=== PATIENT | female | born 1995 | race Caucasian/White ===

== ENCOUNTER 2017-10-06 21:36 | Observation (INO) | payer MEDICAID, OTHER ==
[2017-10-06 23:04] LABS: Urine Bacteria FEW /hpf (None Seen); Urine Blood Negative /uL (Negative); Urine Mucus FEW (None Seen); Urine WBC 1 /hpf (0 - 5)
[2017-10-06 23:17] LABS: Alcohol, Urine < 3.0 mg/dL (0-5); Amphetamine Screen, Urine NEGATIVE (NEGATIVE); Barbiturate Scree,Urine NEGATIVE (NEGATIVE); Benzodiazephine Screen, Urine NEGATIVE (NEGATIVE); Cannabinoid Screen, Urine NEGATIVE (NEGATIVE); Cocaine Screen, Urine NEGATIVE (NEGATIVE); Opiate Scree,Urine NEGATIVE (NEGATIVE); Phencyclidine Screen, Urine NEGATIVE (NEGATIVE)
[2017-10-08 09:07] LABS: RPR Non Reactive (Non Reactive)
[2017-10-08 12:09] LABS: Rubella Antibodies, IgG <0.90 index (Immune >0.99)
== END 2017-10-06 23:12 | disposition home or self-care (01) | DRG 782 ==
LOC: LDRP 21:36
PROVIDERS: ADMIT Specialist; ATTEND Specialist
DX: O36.8120 Decreased fetal movements, second trimester, not applicable or unspecified (principal); Z3A.26 26 weeks gestation of pregnancy; Z87.891 Personal history of nicotine dependence
CPT/HCPCS: 36415; 59025; 76805; 80307; 81001; 81002; 86592; 86703; 86762; 86850; 86900; 86901; 87081; 87340; G0378